=== PATIENT | male | born 1995 | race Two or more races ===

== ENCOUNTER 2020-06-04 17:35 | Emergency (ER) | payer BC ==
[~2020-06-04] VITALS: Ht 177.8 cm; Wt 74.7 kg
[2020-06-04 17:38] VITALS: BP 119/82
[2020-06-04] MEDS ORDERED: DEXAMETHASONE 4 MG TABLET ONE (18:15)
[2020-06-04] MEDS ORDERED: DEXAMETHASONE 4 MG TABLET PO ONE (18:30)
== END 2020-06-04 18:37 | disposition home or self-care (01) ==
LOC: ED 18:15
DX: L50.0 Allergic urticaria (principal); T78.40XA Allergy, unspecified, initial encounter; R21 Rash and other nonspecific skin eruption; X58.XXXA Exposure to other specified factors, initial encounter
CPT/HCPCS: 99283